=== PATIENT | male | born 1945 | race Caucasian/White ===

== ENCOUNTER 2017-12-10 15:31 | Emergency (ER) ==
[2017-12-10 15:38] VITALS: BP 134/94; TEMP 97.3; BMI 25.0
--- NOTE | 2017-12-10 16:14 | CT ---
Exam: CT abdomen pelvis without intravenous contrast. Comparison: None available. Reason for exam: Constipation. FINDINGS: There is mild basilar atelectasis without pleural effusion, or focal consolidation. Image interpretation is limited by the lack of intravenous contrast administration. There is a small to moderately sized hiatal hernia. Atherosclerotic disease is seen within the aorta and distal arterial vasculature. The liver, spleen, gallbladder, pancreas, and adrenal glands appear grossly unremarkable. Dilated fluid filled loops of small bowel are seen throughout the abdomen measuring up to 3.1 cm with wall thickening. No focal transition point is seen. There is a large amount of fluid and stool seen throughout the large intestine. The bladder appears grossly unremarkable. Operative changes are seen after penile implantation surgery. 1.9 cm hypodensity is seen in the right superior renal pole. 4 mm stone is seen in the left renal vasculature. No hydronephrosis or ureterolithiasis is seen in either kidney. Degenerative disease is seen in the lumbosacral spine with osteophyte formation and intervertebral tatum dy disc space height narrowing. The imaged osseous structures are diffusely demineralized. Sclerotic changes are seen in both sacroi liac joints. Impression: 1. There is a large amount of fluid and stool seen throughout the large and small intestine without a focal transition point. Imaging findings are most consistent with constipation. Follow-up imaging is recommended to document resolution. 2. Small to moderately sized hiatal hernia. 3. Degenerative disease is seen in the lumbosacral spine and pelvis with sclerotic changes in the sa croiliac joints.
--- NOTE | 2017-12-10 16:40 | ED.PDOC ---
General ED Provider: Dr. BRANDIN RIVERA Chief Complaint: Constipation Stated Complaint: constipation Time Seen by Physician: 15:35 (no bowel movementx 5 days) Mode of Arrival: Ambulance Information Source: Patient Exam Limitations: No limitations Nursing and Triage Documentation Reviewed and Agree: Yes Reviewed sepsis parameters & appropriate labs ordered?: No System Inflammatory Response Syndrome: Not Applicable Sepsis Protocol: For patient's 13 years and over: Temp is 96.8 and below OR 101 and greater Pulse >90 BPM Resp >20/minute Acutely Altered Mental Status Are patient's symptoms suggestive of a new infection, such as: -Pneumonia -Skin, Soft Tissue -Endocarditis -UTI -Bone, Joint Infection -Implantable Device -Acute Abdominal Infection -Wound Infection -Meningitis -Blood Stream Catheter Infection -Unknown GI Complaint Exam - Abdominal Pain Complaint/Exam Onset: Gradual Duration: 5 days Initial Severity: Mild Current Severity: None Location of Pain: Diffuse Character: Reports: Dull Aggravating: Reports: None Alleviating: Reports: None Associated Signs and Symptoms: Reports: Constipation. Denies: Diaphoresis, Fever, Cough, Chest pain, Dizziness, Back pain, Blood in stool, Dysuria, Urinary frequency, Decreased urine output, Decreased appetite, Discharge, Nausea , Vomiting, Diarrhea, Decreased activity Related History: Reports: Similar episode Cardiac Risk Factors: Reports: None Testicular Torsion Risk Factors: Reports: None Surgical Obstruction Risk Factors: Reports: None Related Surgical History: Reports: None Abdominal Findings: Present: None Differential Diagnoses: Constipation Review of Systems - Review Of Systems Constitutional: Reports: No symptoms Eyes: Reports: No symptoms Ears, Nose, Mouth, Throat: Reports: No symptoms Respiratory: Reports: No symptoms Cardiac: Reports: No symptoms GI: Reports: Constipated : Reports: No symptoms Musculoskeletal: Reports: No symptoms Skin: Reports: No symptoms Neurological: Reports: No symptoms Endocrine: Reports: No symptoms Hematologic/Lymphatic: Reports: No symptoms All Other Systems: Reviewed and Negative Past Medical History - Past Medical History Previously Healthy: Yes Endocrine: Reports: None Cardiovascular: Reports: None Respiratory: Reports: None Hematological: Reports: None Gastrointestinal: Reports: None Genitourinary: Reports: None Neuro/Psych: Reports: None Musculoskeletal: Reports: None Cancer: Reports: None - Surgical History General Surgical History: Reports: None - Family History Family History: Reports: None - Social History Smoking Status: Never smoker Hx Substance Use: No Alcohol Screening: None Physical Exam - Physical Exam Appearance: Well-appearing, No pain distress, Well-nourished Eyes: TOÑA, EOMI, Conjunctiva clear ENT: Ears normal, Nose normal, Oropharynx normal Respiratory: Airway patent, Breath sounds clear, Breath sounds equal, Respirations nonlabored Cardiovascular: RRR, Pulses normal, No rub, No murmur GI/: Soft, Nontender, No masses, Bowel sounds normal, No Organomegaly Musculoskeletal: Normal strength, ROM intact, No edema, No calf tenderness Skin: Warm, Dry, Normal color Neurological: Sensation intact, Motor intact, Reflexes intact, Cranial nerves intact, Alert, Oriented Psychiatric: Affect appropriate, Mood appropriate Critical Care Note - Critical Care Note Total Time (mins): 0 Course - Course Orders, Labs, Meds: Orders Category Date Time Status CT ABDOMEN/PELVIS WO CONTRAST Stat RADS 12/10/17 15:33 Completed Vital Signs: Temp Pulse Resp BP Pulse Ox 12/10/17 15:32 97.3 F L 98 H 18 134/94 H 100 Departure - Departure Time of Disposition: 16:39 (had a huge bowel movement in the E.D. feels MUCH BETTER ) Disposition: HOME SELF-CARE Discharge Problem: Constipation Instructions: Constipation (ED) Condition: Good Pt referred to PMD for follow-up: Yes IPMP verified?: No Additional Instructions: Please call your Family Physician as soon as possible to schedule a follow-up appointment. Allergies/Adverse Reactions: Allergies No Known Allergies Allergy (Verified 12/10/17 15:43) Home Medications: Ambulatory Orders Amitriptyline HCl [Elavil] 10 mg PO DAILY 12/10/17 Amlodipine Besylate [Norvasc] 5 mg PO DAILY 12/10/17 Apixaban [Eliquis] 5 mg PO BID 12/10/17 Atorvastatin Calcium [Lipitor] 10 mg PO BEDTIME 12/10/17 Benztropine Mesylate 0.5 mg PO BID 12/10/17 Bisacodyl [Dulcolax] 5 mg PO DAILY 12/10/17 Carbidopa/Levodopa [Sinemet 25-100] 1 tab PO TID 12/10/17 Donepezil HCl [Aricept] 10 mg PO DAILY 12/10/17 Losartan Potassium [Cozaar] 100 mg PO DAILY 12/10/17 Magnesium Hydroxide [Milk of Magnesia] 30 ml PO DAILY PRN 12/10/17 Memantine HCl [Namenda] 10 mg PO BID 12/10/17 Multivitamin 1 cap PO DAILY 12/10/17 Nystatin [Nystop Powder] 1 applic TP TID PRN 12/10/17 Ondansetron HCl [Zofran Tab] 4 mg PO Q8H PRN 12/10/17 Oxycodone HCl/Acetaminophen [Oxycodon-Acetaminophen 7.5-325] 1 each PO Q6H PRN 12/10/17 Pantoprazole Sodium [Protonix] 40 mg PO QDAC 12/10/17 Polyethylene Glycol 3350 [Miralax] 17 gm PO DAILY PRN 12/10/17 Sertraline HCl [Zoloft] 150 mg PO DAILY 12/10/17
== END 2017-12-10 18:10 | disposition home or self-care (01) ==
LOC: ED 15:31
DX: K59.00 Constipation, unspecified (principal)
CPT/HCPCS: 99282